=== PATIENT | female | born 1945 | race Caucasian/White ===

== ENCOUNTER 2017-03-29 06:52 | Day surgery (SDC) | payer MEDICARE, BC ==
[2017-03-29] MEDS ORDERED: fentaNYL 100 MCG/2 ML SDV ONE (06:57)
[2017-03-29] MEDS ORDERED: Propofol 200 MG/20 ML SDV ONE ×2 (06:57→08:48)
[2017-03-29] MEDS ORDERED: Midazolam 1 MG/ML 2 ML SDV ONE (06:58)
[2017-03-29] MEDS ORDERED: Sodium Chloride 0.9% 1,000 ML IV SCH (07:30)
[2017-03-29] MEDS ORDERED: Atropine 0.4 MG/ML SDV ONE (08:42)
--- NOTE | 2017-03-29 09:47 | OR ---
DATE OF PROCEDURE: 03/29/2017 PROCEDURE: Colonoscopy. FINDINGS: 1. Ascending colon polyp, approximately 5 mm, completely removed using cold biopsy forceps. 2. Ascending colon polyp #2, approximately 5 mm, completely removed using cold biopsy forceps. 3. Ascending colon polyp, approximately 5 mm, completely removed using cold biopsy forceps. 4. Random biopsies of cecum due to chronic diarrhea. 5. Random biopsies of rectum due to chronic diarrhea. COMPLICATIONS: None. GENERAL HELPER: None. ANESTHESIA: MAC. PREOPERATIVE DIAGNOSES: Diarrhea/history of polyps. POSTOPERATIVE DIAGNOSES: Diarrhea/history of polyps. RISKS: Risks, benefits, alternatives, limitations including, but not limited to infection, bleeding, and perforation were explained to the patient who wished to proceed. PROCEDURE IN DETAIL: The patient was placed in left lateral decubitus position. Digital rectal exam was performed without abnormality. The scope was introduced and advanced atraumatically to the ileocecal valve. The scope was brought back to the ascending, transverse, descending colon, and retroflexed. No evidence of old or new blood. The aforementioned polyps were identified and removed. Very minimal diverticulosis. No inflammation consistent with irritable or inflammatory bowel disease (mucosa grossly normal). No abnormalities when retroflexed. The patient tolerated the procedure well. Mehul Carrizales MD /[id number]
[2017-03-29 10:01] VITALS: BP 120/74
== END 2017-03-29 10:18 | disposition home or self-care (01) ==
LOC: JP.SDS 06:52
PROVIDERS: ATTEND Surgery
DX: Z12.11 Encounter for screening for malignant neoplasm of colon (principal); D12.2 Benign neoplasm of ascending colon; D12.8 Benign neoplasm of rectum; K52.9 Noninfective gastroenteritis and colitis, unspecified; K57.30 Diverticulosis of large intestine without perforation or abscess without bleeding; I10 Essential (primary) hypertension; K21.9 Gastro-esophageal reflux disease without esophagitis; Z86.010 Personal history of colon polyps; Z91.09 Other allergy status, other than to drugs and biological substances; Z91.011 Allergy to milk products
CPT/HCPCS: 45380; 88305; J0461; J2250; J2704; J3010; J7040

== ENCOUNTER 2021-09-04 06:16 | Day surgery (SDC) | payer MEDICARE, BC ==
[2021-09-04] MEDS ORDERED: Sodium Chloride 0.9% 1,000 ML IV SCH (07:00)
[2021-09-04] MEDS ORDERED: fentaNYL 100 MCG/2 ML SDV ONE ×2 (07:02→07:17)
[2021-09-04] MEDS ORDERED: Propofol 200 MG/20 ML SDV ONE ×2 (07:02→07:17)
[2021-09-04] MEDS ORDERED: Midazolam 1 MG/ML 2 ML SDV ONE (07:02)
[2021-09-04 08:49] VITALS: BP 108/73; PULSE 88
== END 2021-09-04 08:55 | disposition home or self-care (01) ==
LOC: JP.SDS 06:16
PROVIDERS: ATTEND Surgery
DX: Z09 Encounter for follow-up examination after completed treatment for conditions other than malignant neoplasm (principal); K57.30 Diverticulosis of large intestine without perforation or abscess without bleeding; K64.9 Unspecified hemorrhoids; I10 Essential (primary) hypertension; K21.9 Gastro-esophageal reflux disease without esophagitis; E03.9 Hypothyroidism, unspecified; Z98.890 Other specified postprocedural states; Z86.010 Personal history of colon polyps; Z91.011 Allergy to milk products; Z91.048 Other nonmedicinal substance allergy status
CPT/HCPCS: 45378; J2704; J3010; J7030; J2250

== ENCOUNTER 2023-06-13 07:50 | Day surgery (SDC) | payer MEDICARE, BC ==
[2023-06-13] MEDS: Sodium Chloride 0.9% 10 ML Syringe FLUSH PRN (08:26)
[2023-06-13 09:08] VITALS: BP 154/87; PULSE 63
== END 2023-06-13 09:00 | disposition home or self-care (01) ==
LOC: JP.SDS 07:50
PROVIDERS: ATTEND Ophthalmology
DX: H26.9 Unspecified cataract (principal); I10 Essential (primary) hypertension; K21.9 Gastro-esophageal reflux disease without esophagitis
CPT/HCPCS: J3490; V2632

== ENCOUNTER 2024-10-05 14:44 | Emergency (ER) | payer MEDICARE, BC ==
[2024-10-05] MEDS ORDERED: Sodium Chloride 0.9% 10 ML Syringe FLUSH PRN (15:37)
[2024-10-05 15:53] LABS: BASOPHILS ABSOLUTE AUTO 0.06 K/uL (0.00-0.10); BASOPHILS PERCENT AUTO 0.9 % (0.1-1.3); EOSINOPHILS ABSOLUTE AUTO 0.22 K/uL (0.00-0.40); EOSINOPHILS PERCENT AUTO 3.2 % (0.0-5.4); HEMATOCRIT 42.1 % (34.3-46.0); HEMOGLOBIN 14.2 g/dL (11.2-15.5); IMMATURE GRAN PERCENT AUTO 0.1 % (0.0-0.7); LYMPHOCYTES ABSOLUTE AUTO 1.56 K/uL (0.8-3.3); LYMPHOCYTES PERCENT AUTO 22.5 % (11.4-47.7); MEAN CORPUSCULAR HEMOGLOBIN 29.7 pg (31.6-35.5); MEAN CORPUSCULAR HGB CONC 33.7 g/dL (31.6-35.5); MEAN CORPUSCULAR VOLUME 88.1 fL (81.4-99.0); MONOCYTES ABSOLUTE AUTO 0.49 K/uL (0.20-0.90); MONOCYTES PERCENT AUTO 7.1 % (3.3-12.6); NEUTROPHILS ABSOLUTE AUTO 4.58 K/uL (1.0-7.6); NEUTROPHILS PERCENT AUTO 66.2 % (40.0-78.1); PLATELET COUNT,PLT 219 K/uL (130-375); RED BLOOD CELL COUNT 4.78 M/uL (3.77-5.24); WHITE BLOOD CELL COUNT,WBC 6.9 K/uL (3.2-11.0)
[2024-10-05 15:54] LABS: IMMATURE GRAN ABSOLUTE AUTO 0.01 K/uL (0.00-0.23)
[2024-10-05] MEDS: Sodium Chloride 0.9% 1,000 ML IV SCH (15:56)
[2024-10-05 16:17] LABS: A/G RATIO 1.1 (1.2-2.2); ALANINE AMINOTRANSFERASE,ALT 19 U/L (12-78); ALBUMIN 3.4 g/dL (3.4-5.0); ALKALINE PHOSPHATASE 87 U/L (46-116); ASPARTATE AMNIOTRANSFERASE,AST 16 U/L (15-37); BILIRUBIN TOTAL 0.6 mg/dL (0.2-1.0); BLOOD UREA NITROGEN,BUN 16 mg/dL (7-18); CALCIUM 8.8 mg/dL (8.5-10.1); CARBON DIOXIDE,CO2 25 mmol/L (21-32); CHLORIDE,CL 106 mmol/L (100-108); CREATININE 0.8 mg/dL (0.6-1.0); EST CRCL DRUG DOSING (CG) 46.58 mL/min; ESTIMATED GFR 76 mL/min (>60); GLUCOSE RANDOM 106 mg/dL (74-106); POTASSIUM,K 3.8 mmol/L (3.6-5.2); PROTEIN TOTAL,TP 6.4 g/dL (6.4-8.2); SODIUM,NA 139 mmol/L (140-148); TROPONIN I HIGH SENSITIVITY 9.5 pg/mL (<=60.3)
[2024-10-05 16:19] LABS: ANION GAP 11.8 mmol/L (5.0-14.0)
[2024-10-05 17:02] VITALS: BP 139/67; PULSE 43
== END 2024-10-05 17:09 | disposition home or self-care (01) ==
LOC: JP.ED 14:44
DX: R00.1 Bradycardia, unspecified (principal); R00.8 Other abnormalities of heart beat; E66.9 Obesity, unspecified; Z68.32 Body mass index [BMI] 32.0-32.9, adult; Z90.49 Acquired absence of other specified parts of digestive tract; Z90.710 Acquired absence of both cervix and uterus; Z79.899 Other long term (current) drug therapy; Z91.048 Other nonmedicinal substance allergy status; Z91.011 Allergy to milk products
CPT/HCPCS: 36415; 80053; 83605; 84484; 85025; 93005; 96360; 99284; J7030